=== PATIENT | female | born 1960 | race Caucasian/White ===

== ENCOUNTER 2016-10-21 14:15 | Emergency (ER) | payer BC ==
[~2016-10-21] VITALS: Ht 152.4 cm; Wt 70.8 kg
[~2016-10-21 14:15] MED LIST: HYDR-3454 PO; RANI150T90 PO; ROSU40TA PO
[2016-10-21] MEDS ORDERED: ESTR1TAB24 (14:58)
--- NOTE | 2016-10-21 15:42 | ED Upper Extremity ---
General Chief Complaint: Upper Extremity Stated Complaint: WRIST INJURY/PAIN Nursing Triage Note: AMB TO ROOM REPORTS TODAY WAS EXTENDING A EXTENSION LADDER WHEN IT CAME BACK DOWN AND HIT HER IN THE L HAND AND WIRST. ABRASION TO L WRST. Nursing Sepsis Screen: No Definite Risk Source: patient Exam Limitations: no limitations History of Present Illness Time seen by provider: 14:55 Initial Comments This 56-year-old woman presents to the emergency room with left hand and wrist injury. She was using an extension ladder that collapsed and pinched her hand and wrist between 2 rungs under the weight of her own body. She has swelling, ecchymosis, and abrasions to the affected area. She denies any other injury. Injury happened at approximately 13:00. Allergies and Home Medications Allergies Coded Allergies: No Known Drug Allergies (Unverified , 05/02/15) Home Medications Estradiol 1 Mg Tablet, #30 (Reported) Ranitidine HCl 150 Mg Tablet, 150 MG PO BID, (Reported) Rosuvastatin Calcium 40 Mg Tablet, 40 MG PO HS, (Reported) Constitutional: no symptoms reported EENTM: no symptoms reported Respiratory: no symptoms reported Cardiovascular: no symptoms reported Gastrointestinal: no symptoms reported Genitourinary: no symptoms reported Musculoskeletal: see HPI Skin: see HPI Psychiatric/Neurological: No Symptoms Reported Past Tqnoszl-Lcwedx-Ggvrgx Hx Patient Social History Alcohol Use: Denies Use Recreational Drug Use: No Smoking Status: Never a Smoker Former Smoker/When Quit: May 02, 1979 Recent Foreign Travel: No Contact w/Someone Who Travel: No Recent Infectious Disease Expo: No Immunizations Up To Date Date of Influenza Vaccine: Mar 26, 2015 Surgeries HX Surgeries: Yes (right knee scope) Respiratory Hx Respiratory Disorders: No Cardiovascular Hx Cardiac Disorders: No Neurological Hx Neurological Disorders: No Reproductive System : No Genitourinary Hx Genitourinary Disorders: No Gastrointestinal Hx Gastrointestinal Disorders: Yes Gastrointestinal Disorders: Gastroesophageal Reflux, Gall Bladder Disease Musculoskeletal Hx Musculoskeletal Disorders: No Endocrine Hx Endocrine Disorders: No HEENT HX ENT Disorders: No Cancer Hx Cancer: No Psychosocial Hx Psychiatric Problems: No Integumentary HX Skin/Integumentary Disorder: No Blood Transfusions Hx Blood Disorders: No Physical Exam Vital Signs Vital Sign - Last 12Hours 10/21/16 10/21/16 14:51 17:38 Temp 97.6 Pulse 86 Resp 18 Pulse Ox 98 Capillary Refill : Less Than 3 Seconds General Appearance: WD/WN, no apparent distress HEENT: normal ENT inspection Neck: normal inspection Cardiovascular: regular rate, rhythm, no edema, no murmur Respiratory: lungs clear, normal breath sounds, no respiratory distress, no accessory muscle use Wrist: Yes bone tenderness, Yes ecchymosis, Yes swelling Hand: bone tenderness, ecchymosis, stiffness 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 See report below: NAME: LISY LESLIE [facility] REC#: [id number] PT STATUS: REG ER : 1960 PHYSICIAN: YOHANNES BOYD MD ADMIT DATE: 10/21/16/ER Signed Date of Exam: 10/21/16 HAND, LEFT, 3 VIEWS EXAMINATION: Three views of the left hand. INDICATION: Fall. FINDINGS: No fracture, dislocation, or radiopaque foreign body seen. Lucencies well defined in the lunate are seen without significant arthritic changes, may relate to interosseous ganglion cyst. IMPRESSION: No acute process. Dictated by: Dictated on workstation # [id number] Dict: 10/21/16 1559 Trans: 10/21/16 1613 Interpreted by: MALATHI ESCOBAR MD Electronically signed by: MALATHI ESCOBAR MD 10/21/16 1613 Diagonstic Imaging: Xray Comments Left wrist x-ray viewed by me and report reviewed. See report below: NAME: LISY LESLIE [facility] REC#: [id number] PT STATUS: REG ER : 1960 PHYSICIAN: YOHANNES BOYD MD ADMIT DATE: 10/21/16/ER Signed Date of Exam: 10/21/16 WRIST, LEFT, 3 VIEWS OR MORE Three views of the left wrist. INDICATION: Fall. FINDINGS: No fracture, dislocation, or radiopaque foreign body seen. Lucencies in the lunate are seen, possibly related to bone cysts. No significant associated arthritic changes seen. IMPRESSION: No acute process. Dictated by: Dictated on workstation # [id number] Dict: 10/21/16 1546 Trans: 10/21/16 1613 Interpreted by: MALATHI ESCOBAR MD Electronically signed by: MALATHI ESCOBAR MD 10/21/16 1613 Departure Impression Impression: Primary Impression: Contusion of left wrist Qualified Codes: S60.212A - Contusion of left wrist, initial encounter Additional Impression: Contusion of left hand Qualified Codes: S60.222A - Contusion of left hand, initial encounter Disposition: 01 HOME, SELF-CARE Condition: Improved Departure-Patient Inst. Decision time for Depature: 15:30 Referrals: SARAH ROWLEY MD (PCP/Family) Primary Care Physician Patient Instructions: Contusion (DC) Add. Discharge Instructions: Icing in 20 minute intervals, elevation, and rest should improve pain and swelling. You may take ibuprofen up to 600 mg every 6 hours as needed for pain. Take ibuprofen with food or milk to avoid irritation on your stomach Add Tylenol (acetaminophen) up to 1000 mg every 6 hours as needed for additional pain relief. Return to care if symptoms are worsening or not improving. All discharge instructions reviewed with patient and/or family. Voiced understanding. YOHANNES BOYD MD October 21, 2016 15:42
--- NOTE | 2016-10-21 16:04 | Diagnostic Imaging Report ---
Three views of the left wrist. INDICATION: Fall. FINDINGS: No fracture, dislocation, or radiopaque foreign body seen. Lucencies in the lunate are seen, possibly related to bone cysts. No significant associated arthritic changes seen. IMPRESSION: No acute process. Dictated by: Dictated on workstation # [id number]
--- NOTE | 2016-10-21 16:11 | Diagnostic Imaging Report ---
EXAMINATION: Three views of the left hand. INDICATION: Fall. FINDINGS: No fracture, dislocation, or radiopaque foreign body seen. Lucencies well defined in the lunate are seen without significant arthritic changes, may relate to interosseous ganglion cyst. IMPRESSION: No acute process. Dictated by: Dictated on workstation # [id number]
[2016-10-21 17:38] VITALS: BP 136/86
== END 2016-10-21 16:26 | disposition home or self-care (01) ==
LOC: EDUNIT# 14:15 → ER 14:17
DX: S60.222A Contusion of left hand, initial encounter (principal); S60.212A Contusion of left wrist, initial encounter; W23.0XXA Caught, crushed, jammed, or pinched between moving objects, initial encounter; Y99.8 Other external cause status
CPT/HCPCS: 73110; 73130; 99282

== ENCOUNTER → 2019-05-31 | Outpatient (CLI) | payer BC ==
[~2019-05-31] MED LIST changes: +ESTR1TAB24; -HYDR-3454 PO; +HYDR-3455 PO
--- NOTE | 2019-05-31 13:12 | Diagnostic Imaging Report ---
INDICATION: Routine screening. COMPARISON: Comparison is made with prior mammograms 11/13/2015 and 12/06/2013. 2-D and 3-D bilateral screening mammography was performed. The current study was also evaluated with a Computer Aided Detection (CAD) system. 3-D tomosynthesis was also performed and reviewed. FINDINGS: Scattered fibroglandular densities are identified bilaterally. The parenchymal pattern appears stable. No mass or malignant-appearing microcalcifications are seen. Axillae are unremarkable. IMPRESSION: No mammographic features suspicious for malignancy are identified. ACR BI-RADS Category 1: Negative. Result letter will be mailed to the patient. Note: At least 10% of breast cancer is not imaged by mammography. Dictated by: Dictated on workstation # [id number]
== END ==
LOC: RAD 09:14
PROVIDERS: ATTEND Family Medicine
DX: Z12.31 Encounter for screening mammogram for malignant neoplasm of breast (principal)
CPT/HCPCS: 77067

== ENCOUNTER → 2022-12-01 | Outpatient (CLI) | payer BC ==
--- NOTE | 2022-12-01 15:47 | Diagnostic Imaging Report ---
INDICATION: Routine screening. COMPARISON: 05/31/2019 and 11/13/2015. TECHNIQUE: 2D and 3D bilateral screening mammography was performed with CAD. FINDINGS: Scattered fibroglandular densities are identified bilaterally. The parenchymal pattern is stable. No mass or malignant-appearing microcalcifications are identified. The axillae are unremarkable. IMPRESSION: No mammographic features suspicious for malignancy are identified. ACR BI-RADS Category 1: Negative. Result letter will be mailed to the patient. Note: At least 10% of breast cancer is not imaged by mammography. Dictated by: Dictated on workstation # [id number]
== END ==
LOC: RAD 14:33
PROVIDERS: ATTEND Family Medicine
DX: Z12.31 Encounter for screening mammogram for malignant neoplasm of breast (principal)
CPT/HCPCS: 77063; 77067

== ENCOUNTER 2022-12-24 05:37 | Outpatient (CLI) | payer BC ==
[~2022-12-24] VITALS: Ht 154.9 cm; Wt 74.0 kg
[2022-12-24] MEDS ORDERED: IBUP-2473 PO (10:22)
[2022-12-24] MEDS ORDERED: PHYT1CAP5 PO (10:22)
[2022-12-24] MEDS ORDERED: ACET325T38 PO (10:22)
[2022-12-24] MEDS ORDERED: VITA-212 PO (10:28)
== END 2022-12-24 10:32 | disposition home or self-care (01) ==
LOC: PREOP 05:37
PROVIDERS: ATTEND Surgery
DX: Z01.818 Encounter for other preprocedural examination (principal)

== ENCOUNTER 2023-01-06 09:54 | Day surgery (SDC) | payer BC ==
[~2023-01-06] VITALS: Ht 155 cm; Wt 74.0 kg
[~2023-01-06 09:54] MED LIST changes: +ACET325T38 PO; +IBUP-2473 PO; +PHYT1CAP5 PO; +VITA-212 PO
[2023-01-06] MEDS ORDERED: LACTATED RINGERS 1,000 ML IV STA (09:56)
[2023-01-06] MEDS ORDERED: HURRICAINE EXT TUBE (BENZOCAINE) XX PRN (10:00)
--- NOTE | 2023-01-06 11:07 | Progress Note-Pre Operative ---
Pre-Operative Progress Note Date H&P Reviewed: Jan 06, 2023 Time H&P Reviewed: 11:07 History & Physical: H&P Reviewed, Patient Examed, No changes noted Pre-Operative Diagnosis: GERD, screening colonoscopy HERNANDEZ GIORDANO DO Jan 06, 2023 11:07
[2023-01-06] MEDS ORDERED: MIDAZOLAM INJ 2 MG/2 ML VIAL ONE (12:52)
[2023-01-06] MEDS ORDERED: PROPOFOL INJECTION 50 ML IV ONE (12:52)
[2023-01-06 13:20] VITALS: BP 119/69
--- NOTE | 2023-01-06 13:22 | Progress Note-Post Operative ---
Post-Operative Progess Note Surgeon (s)/Teacher Of Family And Consumer Science (s) Surgeon HERNANDEZ GIORDANO DO Teacher Of Family And Consumer Science: none Pre-Operative Diagnosis GERD, screening colonoscopy Post-Operative Diagnosis duodenitis, slight gastritis, diverticulosis Procedure & Operative Findings Date of Procedure 01/06/23 Procedure Performed/Findings colonoscopy, endoscopy with biopsies Anesthesia Type per MEDICAL LAB TECHNOLOGIST Estimated Blood Loss Estimated blood loss (mL): none Specimens/Packing Specimens Removed duodenum, antrum, ge biopsies HERNANDEZ GIORDANO DO Jan 06, 2023 13:22
[2023-01-06] MEDS ORDERED: PANT40TA2 PO (13:24)
[2023-01-06] MEDS ORDERED: SUCR1TAB36 PO (13:24)
--- NOTE | 2023-01-06 13:24 | Discharge Inst-Simple/Standard ---
Discharge Inst-Standard Discharge Medications New, Converted or Re-Newed RX: Transmitted to Pharmacy Patient Instructions/Follow Up Plan of Care/Instructions/FU: edy 2 weeks Activity as Tolerated: Yes Discharge Diet: Regular Diet HERNANDEZ GIORDANO DO Jan 06, 2023 13:24
[2023-01-06 13:25] VITALS: BP 120/70
[2023-01-06 13:30] VITALS: BP 120/70
[2023-01-06 13:46] VITALS: BP 120/70
--- NOTE | 2023-01-06 14:12 | Anesthesia-General Post-Op ---
MAC Patient Condition Mental Status/LOC: Same as Preop Cardiovascular: Satisfactory Nausea/Vomiting: Absent Respiratory: Satisfactory Pain: Controlled Complications: Absent Post Op Complications Complications None Follow Up Care/Instructions Patient Instructions None needed. Anesthesiology Discharge Order Discharge Order Patient is doing well, no complaints, stable vital signs, no apparent adverse anesthesia problems. No complications reported per nursing. SHANDA CONCEPCION CRNA Jan 06, 2023 14:12
--- NOTE | 2023-01-06 20:37 | OPERATIVE REPORT ---
DATE OF SERVICE: 01/06/2023 PREOPERATIVE DIAGNOSES: Gastroesophageal reflux disease and screening colonoscopy. POSTOPERATIVE DIAGNOSES: Duodenitis, gastritis, normal colon and diverticulosis. PROCEDURES: EGD with biopsies, colonoscopy. SURGEON: Hernandez Lewis DO ANESTHESIA: Per [employer] DE[employer]MENT. INDICATIONS: The patient is a 62-year-old female with GERD symptoms and needing colonoscopy. She understands risks and benefits and wishes to proceed. Consent was signed in chart. DESCRIPTION OF PROCEDURE: The patient was taken to endoscopy suite, placed in left lateral recumbent position. Timeout was performed. Scope was inserted in the mouth, down the esophagus, stomach, into the duodenum without difficulty. There were no polyps, masses or ulcerations within the second portion of duodenum. First portion of duodenum had erythematous changes consistent with duodenitis. Scope was then slowly retracted back after a biopsy was obtained. Scope was inserted into the stomach where there [ ] inflammatory changes. Biopsy of the antrum was obtained. No polyps, masses or ulcerations. Scope was retroflexed noting no other pathology. Scope was returned to its normal position, slowly withdrawn until distal esophagus. Biopsy of the GE junction was obtained. No polyps, masses or ulcerations. Scope was slowly retracted back until completely removed. Digital rectal exam was performed. No palpable polyps, masses or ulcerations. Scope was inserted in the rectum, advanced all the way to the cecum with minimal difficulty. Prep was adequate. Scope was then slowly retracted back. No polyps, masses or ulcerations in the cecum, ascending, transverse, descending, sigmoid colon. Some diverticulosis present. Once in the rectum, scope was retroflexed noting no other pathology. Scope was returned to its normal position, slowly withdrawn until completely removed. The patient tolerated the procedure well without complications, taken to recovery room in stable condition. RECOMMENDATIONS: The patient will need repeat colonoscopy in 10 years unless family history of colon cancer, personal history of polyps, which will then be 5 years. Any issues before that, be seen at that time. She will also be started on Protonix and [ ]. We will see how symptoms are doing. Job ID: [id number] DocumentID: [id number] Dictated Date: 01/06/2023 14:03:41 Wood Grainer Date: 01/06/2023 20:35:00 Dictated By: HERNANDEZ LEWIS DO
== END 2023-01-06 13:54 | disposition home or self-care (01) ==
LOC: ENDO 09:54
PROVIDERS: ATTEND Surgery
DX: Z12.11 Encounter for screening for malignant neoplasm of colon (principal); K29.70 Gastritis, unspecified, without bleeding; K21.00 Gastro-esophageal reflux disease with esophagitis, without bleeding; K31.89 Other diseases of stomach and duodenum; K57.30 Diverticulosis of large intestine without perforation or abscess without bleeding